=== PATIENT | male | born 1995 | race Caucasian/White ===

== ENCOUNTER 2022-01-05 18:57 | Emergency (ER) | payer BC | END 2022-01-05 21:08 | disposition home or self-care (01) | LOC: JD.ED 18:57 | DX: H92.01 Otalgia, right ear (principal); H73.893 Other specified disorders of tympanic membrane, bilateral | CPT/HCPCS: 99282 ==

== ENCOUNTER 2024-12-11 17:06 | Emergency (ER) | payer BC, OTHER ==
[2024-12-11] MEDS ORDERED: Sodium Chloride 0.9% 10 ML Syringe FLUSH PRN (17:35)
[2024-12-11] MEDS: diphenhydrAMINE 50 MG/ML SDV IVPUSH ONE ×2 (18:03→18:04)
[2024-12-11] MEDS: methylPREDNISolone Sodium Succinate 125 MG/2 ML SDV IM ONE (18:04)
[2024-12-11] MEDS: methylPREDNISolone Sodium Succinate 125 MG/2 ML SDV IVPUSH ONE (18:04)
== END 2024-12-11 18:00 | disposition left against medical advice (07) ==
LOC: JD.ED 17:06
DX: T63.444A Toxic effect of venom of bees, undetermined, initial encounter (principal)
CPT/HCPCS: 99282